=== PATIENT | female | born 1930 | race Caucasian/White ===

== ENCOUNTER 2019-01-20 04:01 | Emergency (ER) | payer MEDICARE, BC, OTHER ==
[~2019-01-20] VITALS: Ht 157.5 cm; Wt 68.0 kg
[2019-01-20] MEDS ORDERED: ATEN25TA PO (04:58)
[2019-01-20 05:13] LABS: BASO # 0.1 10^3/uL (0.0-0.2); BASO % 0.9 % (0.0-1.0); EOS # 0.3 10^3/uL (0.0-0.50); EOS % 4.1 % (0.0-3.0); HEMOGLOBIN 13.1 g/dl (12.0-15.5); LYMPH # 1.6 10^3/uL (1.5-4.5); LYMPH % 22.7 % (24.0-44.0); MEAN CORPUSCULAR HEMOGLOBIN 32.2 pg (27.0-33.0); MEAN CORPUSCULAR HGB CONC 33.6 g/dl (32.0-36.5); MEAN CORPUSCULAR VOLUME 95.8 fl (80.0-96.0); MONO # 0.8 10^3/uL (0.0-0.8); MONO % 12.1 % (0.0-5.0); NEUTROPHILS # 4.1 10^3/uL (1.8-7.7); NEUTROPHILS % 59.9 % (36.0-66.0); PLATELET COUNT, AUTOMATED 301 10^3/uL (150-450); RED BLOOD COUNT 4.07 10^6/uL (4.00-5.40); WHITE BLOOD COUNT 6.9 10^3/uL (4.0-10.0)
[2019-01-20 05:36] LABS: ALBUMIN 3.6 GM/DL (3.2-5.2); ALT/SGPT 18 U/L (12-78); BILIRUBIN,DIRECT < 0.1 MG/DL (0.0-0.2); BILIRUBIN,TOTAL 0.3 MG/DL (0.2-1.0); BLOOD UREA NITROGEN 15 MG/DL (7-18); CALCIUM LEVEL 9.1 MG/DL (8.8-10.2); CARBON DIOXIDE LEVEL 26 MEQ/L (21-32); CHLORIDE LEVEL 111 MEQ/L (98-107); CREATININE FOR GFR 0.83 MG/DL (0.55-1.30); GLOMERULAR FILTRATION RATE > 60.0 (>32); GLUCOSE, FASTING 100 MG/DL (70-100); POTASSIUM SERUM 4.2 MEQ/L (3.5-5.1); SODIUM LEVEL 141 MEQ/L (136-145); TOTAL PROTEIN 7.1 GM/DL (6.4-8.2)
[2019-01-20] MEDS ORDERED: MORPHINE 4 MG/ML 1ML VIAL/SYRINGE (J2270) IV ONE (06:30)
[2019-01-20] MEDS ORDERED: ISOVUE-370 76% 100ML VIAL (Q9967) As Ordered ONE (06:37)
--- NOTE | 2019-01-20 08:09 | REPVR ---
EXAM: CT Lumbar Spine Without Contrast EXAM DATE/TIME: 01/20/2019 6:19 AM CLINICAL HISTORY: 88 years old, female; Injury or trauma; Fall; Initial encounter; Blunt trauma (contusions or hematomas) TECHNIQUE: Imaging protocol: Computed tomography images of the lumbar spine without contrast. Coronal and sagittal reformatted images were created and reviewed. Radiation optimization: All CT scans at this facility use at least one of these dose optimization techniques: automated exposure control; mA and/or kV adjustment per patient size (includes targeted exams where dose is matched to clinical indication); or iterative reconstruction. COMPARISON: No relevant prior studies available. FINDINGS: Vertebrae: Mild lumbar dextroscoliosis. Degenerative grade 1 spondylolisthesis L4-L5 secondary to facet arthrosis. The alignment is otherwise preserved. The bones are diffusely demineralized. Mild anterior wedging of the L1 vertebral body is of indeterminate age. There is an acute nondisplaced fracture involving the right L2 transverse process. No other fractures. Multilevel degenerative disc disease/spondylosis throughout the lower thoracic and lumbar spine with disc space narrowing, degenerative endplate changes and endplate osteophyte formation. Multilevel vacuum phenomenon. Multilevel facet arthrosis. Discs/Spinal canal/Neural foramina: There is multilevel canal stenosis, most pronounced at L4-L5. There are variable degrees of bilateral foraminal narrowing. Kidneys and ureters: There is a 5.6 cm left renal cyst. Vasculature: There is atherosclerotic vascular calcification. No aneurysm. Soft tissues: Paraspinal soft tissues are unremarkable. No paravertebral hematoma. IMPRESSION: 1. Acute nondisplaced fracture involving the right L2 transverse process. 2. Mild anterior wedging of the L1 vertebral body, age indeterminate. 3. Osteopenia with multilevel degenerative disc disease/spondylosis and facet arthrosis. Multilevel canal stenosis, most pronounced at L4-L5. Variable degrees of bilateral foraminal narrowing. 4. Degenerative grade 1 spondylolisthesis L4-L5. Electronically signed by: Daniel Novoa On 01/20/2019 08:09:03 AM
--- NOTE | 2019-01-20 08:39 | REPVR ---
EXAM: CT Abdomen and Pelvis With Contrast EXAM DATE/TIME: 01/20/2019 6:19 AM CLINICAL HISTORY: 88 years old, female; Injury or trauma; Fall; Initial encounter; Blunt; Generalized TECHNIQUE: Imaging protocol: Axial computed tomography images of the abdomen and pelvis with intravenous contrast. Coronal and sagittal reformatted images were created and reviewed. Radiation optimization: All CT scans at this facility use at least one of these dose optimization techniques: automated exposure control; mA and/or kV adjustment per patient size (includes targeted exams where dose is matched to clinical indication); or iterative reconstruction. Contrast material: ISO;Contrast volume: 100 ml;Contrast route: WRIST; COMPARISON: No relevant prior studies available. FINDINGS: Lungs: Bibasilar atelectasis and/or fibrosis. Mediastinum: Small hiatal hernia. Liver: Diffuse fatty infiltration of the liver. Gallbladder and bile ducts: No calcified gallstones. No ductal dilatation. Pancreas: The pancreas is unremarkable. No ductal dilatation. Spleen: The spleen is unremarkable in appearance. Adrenals: The adrenal glands are unremarkable. No mass. Kidneys and ureters: Symmetric nephrograms. There is a 2.5 cm right renal cyst as well as a 5.6 cm left renal cyst. No hydronephrosis. Stomach and bowel: The stomach is relatively decompressed. No bowel obstruction. No bowel wall thickening. Appendix: Normal appendix. Intraperitoneal space: No free fluid. No free air. Vasculature: Atherosclerosis. No abdominal aortic aneurysm. Lymph nodes: No significant adenopathy. Bladder: Unremarkable as visualized. Reproductive: Unremarkable as visualized. Bones/joints: The bones are diffusely demineralized. Multilevel degenerative change within the lower thoracic and lumbar spine with a grade 1 spondylolisthesis L4-L5. Mild anterior wedging of the L1 vertebral body which is of indeterminate age. Acute nondisplaced fracture of the right L2 transverse process. Degenerative change involving the sacroiliac joints, hip joints and pubic symphysis. Soft tissues: Tiny fat containing umbilical hernia. IMPRESSION: 1. Acute nondisplaced fracture of the right L2 transverse process. 2. Mild anterior wedging of the L1 vertebral body, age-indeterminate. 3. No evidence of post traumatic visceral organ injury, free fluid or free air. 4. Nonemergent findings, as described. Electronically signed by: Daniel Novoa On 01/20/2019 08:39:01 AM
[2019-01-20] MEDS ORDERED: NORCO, ANEXSIA 5/325MG TABLET (HYDROcodone/ACETAMINOPHEN) PO ONE (09:00)
[2019-01-20 09:46] VITALS: BP 186/74
[2019-01-20] MEDS ORDERED: NORC1TAB7 PO (09:53)
[2019-01-20] MEDS ORDERED: COLA100C5 PO (09:54)
[2019-01-20] MEDS ORDERED: ROLLMIS8 XX (09:56)
--- NOTE | 2019-01-20 09:59 | REP ---
REASON: Pain after trauma. COMPARISON: NONE. Degenerative change is seen involving the hips, sacroiliac joints, pubic symphysis, and imaged portion of the lumbar spine. There is no evidence of an acute fracture. This exam was performed as an AP pelvis and bilateral hips. Two views of the right hip: Degenerative changes. No fracture. Two views of the left hip: Degenerative changes. No fracture. Electronically Signed by Rk Miles DO 01/20/2019 09:10 A
[2019-01-20] MEDS ORDERED: ATENOLOL 25 MG TAB PO ONE (10:00)
[2019-01-20 10:01] VITALS: BP 177/77
[2019-01-20] MEDS ORDERED: commode (10:07)
== END 2019-01-20 12:03 | disposition home or self-care (01) ==
LOC: M ED 04:01
DX: S32.018A Other fracture of first lumbar vertebra, initial encounter for closed fracture (principal); S32.028A Other fracture of second lumbar vertebra, initial encounter for closed fracture; S30.0XXA Contusion of lower back and pelvis, initial encounter; W18.39XA Other fall on same level, initial encounter; Y92.89 Other specified places as the place of occurrence of the external cause; I10 Essential (primary) hypertension; K21.9 Gastro-esophageal reflux disease without esophagitis; M19.90 Unspecified osteoarthritis, unspecified site
CPT/HCPCS: 36415; 72131; 73521; 74177; 80048; 80076; 85025; 93041; 96374; 99285; J2270; Q9967